=== PATIENT | female | born 1990 | race Hispanic/Latino ===

== ENCOUNTER 2016-07-05 09:22 | Inpatient (IN) | payer OTHER ==
[~2016-07-05] VITALS: Ht 160 cm; Wt 106.6 kg
[~2016-07-05 09:22] MED LIST: DIFLUCAN150 MG PO
[2016-07-05 09:50] VITALS: BP 116/64
--- NOTE | 2016-07-05 10:22 | History & Physical ---
General Information and HPI MD Statement: I have seen and personally examined KIMBERLI MORROW and documented this H&P. The patient is a 25 year old female at 39[] weeks and [] days gestation who presented with a chief complaint of []. History of Present Illness: 25 AT 39 WEEKS WITH DECREASED MOVEMENT Allergies/Medications Allergies: Uncoded Allergies: INGREDIENT: NO KNOWN - NO KNOWN DRUG ALLERGY (06/07/10) Home Med list Fluconazole (Diflucan) 150 MG TABLET 1 TAB PO Q72HR . 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 : 2 Para: 1 Last Menstrual Period: 10/11/15 Estimated Delivery Date: 07/12/16 Past bacteriologist industrial History: none Surgical History Pertinent Surgical History: none Past Family/Social History Psychosocial History Smoking Status: Never Smoked Review of Systems Review of Systems: NEG STATED IN HPI Exam & Diagnostic Data Last 24 Hrs of Vital Signs/I&O 18 Vital Signs Date Time Temp Pulse Resp B/P B/P Pulse O2 O2 Flow FiO2 Mean Ox Delivery Rate 07/05 0950 116/64 Intake & Output 07/05 1600 07/05 0800 07/05 0000 Intake Total Output Total Balance Patient 235 lb Weight Obstetric Exam Wgt Gained During : 18 Pelvimetry: TESTED TO 07/17 Dilation (cm): 2 Effacement (%): 50 Station: 0 Membranes: intact Fluid: unknown Fundal Height (cm): 40 Multiple Gestation? No Contractions: NONE Infant #1 - FHR Baseline: 140 Category: 1 Estimated Weight: 3400 Presentation: VTX Patient for Induction? Yes Elkins Score Elkins Score Response Value Cervix Position: anterior 2 Cervix Consistency: soft 2 Cervix Effacement: 30-50% 1 Cervix Dilation: 1-2 cm 1 Total 6 Physical Exam: PE OBESE HF HEENT PERRLA EOMI THROAT NONDEVIATED LUNGS CLEAR HEART S1 S2NSR EXT -EDEMA -HOMANS Labs Blood Type & Rh: O+ Antibody Screen: neg Hct/Hgb & Platelets #1: / Hct/Hgb & Platelets #2: Rubella: immune VDRL #1: nr VDRL #2: nr HbsAg: neg HIV #1: neg HIV #2 neg 1 Hr P Group B Strep: neg Initial Ultrasound: nl Anatomy Ultrasound: nl Genetic Testing: neg Assessment/Plan Assessment/Plan: ASSESS TERM INDUCTIONWITH PITOCIN As Ranked By This Provider Problem List: 1. Core Measures/Miscellaneous Venous Thromboembolism VTE Risk Factors: Obesity, / VTE Contraindications: No Contraindications VTE Diagnosis: No Beta Rambo Is Beta Rambo a Home Med? No Antibiotics Is Patient on Antibiotics? No
[2016-07-05 10:34] LABS: ABSOLUTE BASOPHIL COUNT 0 /CUMM (0.0-0.2); ABSOLUTE EOSINOPHIL COUNT 0.2 /CUMM (0.0-0.7); ABSOLUTE GRANULOCYTE CT 6.7 /CUMM (1.4-6.5); ABSOLUTE LYMPH COUNT 1.6 /CUMM (1.2-3.4); ABSOLUTE MONOCYTE COUNT 0.4 /CUMM (0.10-0.60); BASOPHIL % 0.3 % (0.0-2.0); EOSINOPHIL % 1.8 % (0-5); GRANULOCYTE % 75.2 % (42.2-75.2); MEAN CORPUSCULAR HGB 30.7 PG (27.0-31.0); MEAN CORPUSCULAR HGB CONC 33.8 G/DL (33.0-37.0); MEAN CORPUSCULAR VOLUME 90.7 FL (81.0-99.0); MEAN PLATELET VOLUME 9.4 FL (7.4-10.4); PLATELET COUNT 188 /CUMM (130-400); RBC DISTRIBUTION WIDTH 16.2 % (11.5-14.5); WHITE BLOOD CELL COUNT 8.9 /CUMM (4.8-10.8)
[2016-07-05] MEDS ORDERED: FERRALET 90 TA1 EACH PO (11:37)
[2016-07-05] MEDS ORDERED: PRENATAL TABLE1 EAC2 PO (11:37)
--- NOTE | 2016-07-05 13:01 | PN- Obstetrical ---
Subjective Subjective: NO COMPLAINTS Objective Last 24 Hrs of Vital Signs/I&O Vital Signs Date Time Temp Pulse Resp B/P B/P Pulse O2 O2 Flow FiO2 Mean Ox Delivery Rate 07/05 0950 116/64 Intake & Output 07/05 1600 07/05 0800 07/05 0000 Intake Total Output Total Balance Patient 235 lb Weight Physical Exam: PE PLEASANT HF ABD SOFT BETWEEN CTX Obstetric Exam Dilation (cm): 3 Effacement (%): 80 Station: 0 Membranes: AROM Fluid: clear Multiple Gestation? No Contractions: Q 3MINUTES Infant #1 - FHR Baseline: 140 Category: 1 Estimated Weight: 3400 Presentation: VTX Assessment/Plan Assessment/Plan ASSESS 39 WEEK INDUCTION PLAN CONT PITOCIN
--- NOTE | 2016-07-05 17:25 | PN- Obstetrical ---
Subjective Subjective: NO COMPLAINTS Objective Last 24 Hrs of Vital Signs/I&O Vital Signs Date Time Temp Pulse Resp B/P B/P Pulse O2 O2 Flow FiO2 Mean Ox Delivery Rate 07/05 0950 116/64 Intake & Output 07/05 1600 07/05 0800 07/05 0000 Intake Total Output Total Balance Patient 235 lb Weight Physical Exam: WELL BUILT HF IN LABOR WITH EPIDUR ABD SOFT EXT+1 EDEMA Obstetric Exam Dilation (cm): 6 Effacement (%): 100 Station: 0 Membranes: AROM Fluid: clear Multiple Gestation? No Contractions: Q3 MINUTES Infant #1 - FHR Baseline: 140 Category: 1 Estimated Weight: 3400 Presentation: VTX Assessment/Plan Assessment/Plan ASSESS TERM PLAN OBSERVE FOR
--- NOTE | 2016-07-05 21:19 | Labor & Delivery Summary ---
Delivery Summary Vaginal Delivery: Vaginal: vertex Episiotomy/Lacerations: Episiotomy/Lacerations: MIDLINE Repair: 3 0 Anesthesia: MARCAINE Placenta: Placenta: spontanteous, normal, 3 vessel Anesthesia: block
[2016-07-06 06:52] LABS: ABSOLUTE BASOPHIL COUNT 0 /CUMM (0.0-0.2); ABSOLUTE EOSINOPHIL COUNT 0.1 /CUMM (0.0-0.7); ABSOLUTE GRANULOCYTE CT 14.2 /CUMM (1.4-6.5); ABSOLUTE LYMPH COUNT 1.5 /CUMM (1.2-3.4); BASOPHIL % 0.2 % (0.0-2.0); EOSINOPHIL % 0.3 % (0-5); HEMATOCRIT 34.2 % (37-47); MEAN CORPUSCULAR HGB CONC 33.7 G/DL (33.0-37.0); MEAN CORPUSCULAR VOLUME 91.8 FL (81.0-99.0); MEAN PLATELET VOLUME 9.8 FL (7.4-10.4); PLATELET COUNT 182 /CUMM (130-400); RBC DISTRIBUTION WIDTH 16.3 % (11.5-14.5); RED BLOOD CELL CT 3.73 /CUMM (4.20-5.40)
[2016-07-06 07:12] LABS: GRANULOCYTE % 84.7 % (42.2-75.2); WHITE BLOOD CELL COUNT 16.7 /CUMM (4.8-10.8)
--- NOTE | 2016-07-06 08:17 | PN- Post Delivery/GYN ---
Subjective Subjective: NO COMPLAINTS Objective Last 24 Hrs of Vital Signs/I&O Vital Signs Date Time Temp Pulse Resp B/P B/P Pulse O2 O2 Flow FiO2 Mean Ox Delivery Rate 07/05 0950 116/64 Physical Exam: PE OBESE HF IN NAD ABD SOFT NT LOCHIA MINIMAL EXT -EDEMA - HOMANS Assessment/Plan Assessment/Plan ASSESS S/P PLAN CONT PPC
[2016-07-07] MEDS ORDERED: IBUPROFEN800 M1 PO (09:03)
== END 2016-07-07 10:20 | DRG 560 ==
LOC: GNO 09:22
PROVIDERS: ADMIT Specialist
PROC: 10E0XZZ Delivery of Products of Conception, External Approach (ICD-10-PCS; principal; 2016-07-05)
PROC: 0W8NXZZ Division of Female Perineum, External Approach (ICD-10-PCS; principal; 2016-07-05)
PROC: 3E033VJ Introduction of Other Hormone into Peripheral Vein, Percutaneous Approach (ICD-10-PCS; 2016-07-05)
DX: O36.8130 Decreased fetal movements, third trimester, not applicable or unspecified (principal); Z3A.39 39 weeks gestation of pregnancy; Z37.0 Single live birth
CPT/HCPCS: GNOS; 36415; 80307; 81003; 86920; 86922; J0290; J7120